=== PATIENT | female | born 1940 | race Caucasian/White ===

== ENCOUNTER 2019-02-09 10:41 | Day surgery (SDC) | payer OTHER ==
[2019-02-09 10:17] VITALS: BMI 31.4
[2019-02-09 15:13] VITALS: BP 171/80; PULSE 59; TEMP 97.9
--- NOTE | 2019-02-14 17:55 | PATH ---
Surgical Pathology Report Patient Name: CATHLEEN THOMPSON [facility]. Rec. #: [id number] /Age/Gender: 1940 (Age: 78) / F Account: [id number] Location: U-ENDOSCOPY Taken: 02/09/2019 Received: 02/10/2019 Reported: 02/14/2019 Physicians: Juliocesar Jarrell D.O. Specimen(s) Received A: ANGULARIS AND BODY B: PYLORUS Clinical History Abnormal CT scan Postoperative diagnosis: Gastritis Final Diagnosis A. STOMACH, ANGULARIS AND BODY, BIOPSY: GASTRIC MUCOSA WITH MODERATE CHRONIC GASTRITIS. IMMUNOHISTOCHEMICAL STAIN FOR H. PYLORI IS NEGATIVE. B. STOMACH, PYLORUS, BIOPSY: GASTRIC MUCOSA WITH MILD CHRONIC GASTRITIS. IMMUNOHISTOCHEMICAL STAIN FOR H. PYLORI IS NEGATIVE. Electronically Signed Sully Arriaza M.D. Gross Description A. Received in formalin, labeled "angularis and body biopsy" are 2 benedict, irregular portions of soft tissue measuring 0.2 and 0.3 cm. in greatest dimension. The specimens are submitted in toto in one cassette. B. Received in formalin, labeled "pylorus biopsy" are 3 benedict, irregular portions of soft tissue averaging 0.3 cm. in greatest dimension. The specimens are submitted in toto in one cassette. 02/10/2019 [facility]02/10/2019
== END 2019-02-09 15:15 | disposition home or self-care (01) ==
LOC: JOR 10:41 → JASU-ENDO 10:41
PROVIDERS: ATTEND Internal Medicine Gastroenterology
PROC: 0DB68ZX Excision of Stomach, Via Natural or Artificial Opening Endoscopic, Diagnostic (ICD-10-PCS; principal; 2019-02-09 12:15)
DX: K29.70 Gastritis, unspecified, without bleeding (principal)
CPT/HCPCS: 88305-TC; 88342-TC

== ENCOUNTER 2024-01-03 23:43 | Emergency (ER) | payer OTHER ==
[2024-01-03 23:52] VITALS: BP 136/68; PULSE 86; RESP 20; TEMP 99.5; BMI 34.0
[2024-01-04] MEDS ORDERED: ACETAMINOPHEN INJECTION 100 ML IVPB ONE (00:50)
[2024-01-04] MEDS: ACETAMINOPHEN 1000 MG/100 ML BAG IVPB ONE (01:12)
[2024-01-04] MEDS: SODIUM CHLORIDE 0.9% 500 ML INFUS.BAG IV ONE (01:12)
[2024-01-04 01:23] LABS: EPI CELLS 13 /uL (0-25.1); HYALINE CASTS 1 /uL (0-3.1); URINE APPEARANCE CLOUDY; URINE BACTERIA 59 /uL (0-1359); URINE BILIRUBIN NEGATIVE (NEGATIVE); URINE COLOR YELLOW; URINE GLUCOSE (UA) NEGATIVE (NEGATIVE); URINE KETONE NEGATIVE (NEGATIVE); URINE LEUK ESTERASE 1+ (NEGATIVE); URINE NITRITE NEGATIVE (NEGATIVE); URINE PROTEIN 1+ (NEGATIVE); URINE RBC 27 /uL (0-23.9); URINE WBC 53 /uL (0-25.8)
[2024-01-04 01:28] LABS: BASO % 0.6 % (0-2.0); HEMATOCRIT 35.9 % (32.4-45.2); HEMOGLOBIN 12.4 GM/dL (10.7-15.3); LYMPH % 20.2 % (8-40); MCH 30.4 pg (25.7-33.7); MCHC 34.5 g/dl (32.0-36.0); MEAN PLT VOLUME 7.7 fl (7.5-11.1); MONO % 14.5 % (3.8-10.2); NEUT % 63.7 % (42.8-82.8); PLATELET COUNT 197 10^3/uL (134-434); RBC 4.08 M/mm3 (3.60-5.2); RDW 13.2 % (11.6-15.6); WHITE BLOOD COUNT 4.9 K/mm3 (4.0-10.0)
[2024-01-04 01:44] LABS: CALCIUM 8.9 mg/dL (8.5-10.1)
[2024-01-04 01:46] LABS: ALBUMIN 3.8 g/dl (3.4-5.0); BLOOD UREA NITROGEN 14.7 mg/dL (7-18)
[2024-01-04 01:49] LABS: CREATININE 0.8 mg/dL (0.55-1.3)
[2024-01-04 01:51] LABS: BILIRUBIN,TOTAL 0.5 mg/dL (0.2-1); TOT PROT 7.3 g/dl (6.4-8.2)
[2024-01-04] MEDS ORDERED: CEPHALEXIN MONOHYDRATE 500 MG CAPSULE (UD) ONE (01:52)
[2024-01-04] MEDS: CEPHALEXIN MONOHYDRATE 500 MG CAPSULE (UD) PO ONE (01:55)
== END 2024-01-04 02:51 | disposition home or self-care (01) ==
LOC: JER 23:43
PROC: 3E033NZ Introduction of Analgesics, Hypnotics, Sedatives into Peripheral Vein, Percutaneous Approach (ICD-10-PCS; principal; 2024-01-04)
DX: U07.1 COVID-19 (principal); N39.0 Urinary tract infection, site not specified; R05.9 Cough, unspecified; R53.1 Weakness; R09.81 Nasal congestion; H92.02 Otalgia, left ear
CPT/HCPCS: 0241U-QW; 36415; 71045-TC-FY; 80053; 81003; 83605; 83735; 84484; 85025; 87040; 87086; 93005; 93010; 96374; 99285-25; J0131

== ENCOUNTER 2024-04-08 14:16 | Observation (INO) | payer OTHER ==
[2024-04-08] MEDS ORDERED: LIDOCAINE 4% PATCH TP ONE (15:12)
[2024-04-08] MEDS ORDERED: ACETAMINOPHEN INJECTION 100 ML ONE (15:12)
[2024-04-08 15:45] LABS: HEMATOCRIT 35.9 % (32.4-45.2); HEMOGLOBIN 12.2 GM/dL (10.7-15.3); MCH 29.6 pg (25.7-33.7); MEAN CELL VOLUME 87.1 fl (80-96); PLATELET COUNT 218 10^3/uL (134-434); RBC 4.12 M/mm3 (3.60-5.2); RDW 13.6 % (11.6-15.6); WHITE BLOOD COUNT 4.9 K/mm3 (4.0-10.0)
[2024-04-08 15:51] LABS: INR 0.97 (0.83-1.09)
[2024-04-08 15:54] LABS: ACTIVATED PTT 31.7 SECONDS (25.2-36.5)
[2024-04-08] MEDS: LIDOCAINE 4% PATCH TP ONE (16:00)
[2024-04-08] MEDS: ACETAMINOPHEN 1000 MG/100 ML BAG IVPB ONE (16:01)
[2024-04-08 16:30] LABS: POTASSIUM 4.3 mmol/L (3.5-5.1)
[2024-04-08 16:33] LABS: ALBUMIN 3.7 g/dl (3.4-5.0); BLOOD UREA NITROGEN 21.9 mg/dL (7-18); CALCIUM 9.5 mg/dL (8.5-10.1)
[2024-04-08 16:36] LABS: CREATININE 0.9 mg/dL (0.55-1.3)
[2024-04-08 16:38] LABS: BILIRUBIN,TOTAL 0.2 mg/dL (0.2-1); TOT PROT 7.3 g/dl (6.4-8.2)
[2024-04-08] MEDS ORDERED: ACETAMINOPHEN 325 MG TABLET (FP) PO PRN (16:57)
[2024-04-08 17:09] LABS: HIV INTERPRETATION NEGATIVE (NEGATIVE)
[2024-04-08] MEDS: HEPARIN NA (PORCINE) 5,000 UNITS/ML 1ML VIAL SQ SCH (22:30)
[2024-04-08] MEDS: LIDOCAINE PATCH REMOVAL MC SCH (22:53)
[2024-04-09 00:46] VITALS: RESP 20; BMI 33.0
[2024-04-09 07:41] LABS: EOS % 7.9 % (0-4.5); HEMATOCRIT 37.2 % (32.4-45.2); HEMOGLOBIN 12.3 GM/dL (10.7-15.3); MCH 29.4 pg (25.7-33.7); MEAN CELL VOLUME 89.2 fl (80-96); MEAN PLT VOLUME 8.3 fl (7.5-11.1); MONO % 7.9 % (3.8-10.2); NEUT % 45.2 % (42.8-82.8); PLATELET COUNT 203 10^3/uL (134-434); RBC 4.17 M/mm3 (3.60-5.2); RDW 13.5 % (11.6-15.6); WHITE BLOOD COUNT 4.8 K/mm3 (4.0-10.0)
[2024-04-09 08:08] LABS: CHOLESTEROL 211 mg/dL (50-200)
[2024-04-09 08:09] LABS: LDL CHOLESTEROL (ONLY SJRH) 152 mg/dL (5-100)
[2024-04-09 08:11] LABS: HDL CHOLESTEROL 44 mg/dL (40-60); POTASSIUM 4.5 mmol/L (3.5-5.1)
[2024-04-09 08:18] LABS: ALBUMIN 3.6 g/dl (3.4-5.0); BLOOD UREA NITROGEN 16.9 mg/dL (7-18); CALCIUM 8.9 mg/dL (8.5-10.1)
[2024-04-09 08:22] LABS: CREATININE 0.7 mg/dL (0.55-1.3)
[2024-04-09 08:23] LABS: BILIRUBIN,TOTAL 0.4 mg/dL (0.2-1); TOT PROT 6.9 g/dl (6.4-8.2)
[2024-04-09] MEDS: METOPROLOL TARTRATE 25 MG TABLET (FP) PO SCH (09:09)
[2024-04-09] MEDS: RAMIPRIL 5 MG CAPSULE PO SCH (09:09)
[2024-04-09 12:25] VITALS: BP 155/77; PULSE 84; TEMP 97.9
== END 2024-04-09 13:10 | disposition home or self-care (01) ==
LOC: JER 14:16 → JERBED 16:19 → J4W 21:51
PROVIDERS: ADMIT Internal Medicine; ATTEND Internal Medicine
PROC: 3E033NZ Introduction of Analgesics, Hypnotics, Sedatives into Peripheral Vein, Percutaneous Approach (ICD-10-PCS; principal; 2024-04-08)
PROC: 3E023GC Introduction of Other Therapeutic Substance into Muscle, Percutaneous Approach (ICD-10-PCS; 2024-04-08)
DX: R07.9 Chest pain, unspecified (principal); I10 Essential (primary) hypertension; E78.00 Pure hypercholesterolemia, unspecified; J45.909 Unspecified asthma, uncomplicated; E11.9 Type 2 diabetes mellitus without complications; E78.5 Hyperlipidemia, unspecified; M19.09 Primary osteoarthritis, other specified site; K80.20 Calculus of gallbladder without cholecystitis without obstruction; K57.92 Diverticulitis of intestine, part unspecified, without perforation or abscess without bleeding; E66.9 Obesity, unspecified; N28.89 Other specified disorders of kidney and ureter; Z87.891 Personal history of nicotine dependence
CPT/HCPCS: 36415; 71045-TC-FY; 80053; 80061; 82962; 83036; 84484; 85025; 85027; 85610; 85730; 86803; 87389; 93005; 93010; 96372; 96374; 99285-25; G0378; J0131; J1644